=== PATIENT | female | born 1995 | race African-American/Black ===

== ENCOUNTER 2016-08-26 13:04 | Emergency (ER) | payer MEDICAID ==
[2016-08-26 13:11] VITALS: BP 125/73
--- NOTE | 2016-08-26 14:17 | ER Document Report ---
ED Medical Screen (RME) - General Chief Complaint: Vaginal Bleeding Stated Complaint: POSSIBLE VAGINAL BLEEDING Mode of Arrival: Ambulatory Information source: Patient Notes: Patient is complaining constant daily heavy vaginal bleeding since 07/29/16. She endorses pelvic pain and back pain that is intermittent, worse this morning. She is using approximately 3 tampons/pads per day. She has not seen her OBGYN because she is unable to get an appointment. Endorses nausea, lightheadedness but denies dizziness, fever, chills, vomiting, diarrhea or vaginal discharged. She has not tried any medication for this or any OTC pain medication. TRAVEL OUTSIDE OF THE [place] IN LAST 30 DAYS: No - Related Data Allergies/Adverse Reactions: diphenhydramine HCl [From [employer]] Adverse Reaction (Verified 05/22/15 03:20) Past Medical History - General Last Menstrual Period: july 29 - Social History Frequency of alcohol use: Social Drug Abuse: None Neurological Medical History: Reports: Hx Migraine Psychiatric Medical History: Reports: Hx Attention Deficit Hyperactivity Disorder - Immunizations Immunizations up to date: Yes Hx Diphtheria, Pertussis, Tetanus Vaccination: Yes Review of Systems - Review of Systems Constitutional: See HPI Gastrointestinal: See HPI Genitourinary: See HPI Female Genitourinary: See HPI Physical Exam - Vital signs Vitals: Temp Pulse Resp BP Pulse Ox 98.1 F 72 18 125/73 99 08/26/16 13:10 08/26/16 13:10 08/26/16 13:10 08/26/16 13:10 08/26/16 13:10 Interpretation: Normal - Notes Notes: General: well-appearing, comfortable, non-toxic. VSS. ENT: moist mucus membranes, no pallor. Course - Re-evaluation Re-evalutation: 08/26/16 14:16 Patient seen and examined. Ordered PO tylenol here, urinalysis, urine hcg and blood work. - Vital Signs Vital signs: Temp Pulse Resp BP Pulse Ox 98.1 F 72 18 125/73 99 08/26/16 13:10 08/26/16 13:10 08/26/16 13:10 08/26/16 13:10 08/26/16 13:10 08/26/16 14:17
[2016-08-26] MEDS ORDERED: ACETAMINOPHEN 325 MG TABLET PO ONE (14:18)
[2016-08-26 15:02] LABS: ABSOLUTE BASOPHILS # (AUTO) 0.1 10^3/uL (0.0-0.2); ABSOLUTE EOSINOPHILS # (AUTO) 0.4 10^3/uL (0.0-0.6); ABSOLUTE MONOCYTES (AUTO) 0.5 10^3/uL (0.1-1.4); ABSOLUTE NEUT (AUTO) 6.4 10^3/uL (1.7-8.2); BASOPHILS % (AUTO) 0.9 % (0-2); EOSINOPHILS % (AUTO) 3.8 % (0-6); HEMATOCRIT 33.9 % (36.0-47.0); HEMOGLOBIN 10.8 g/dL (12.0-15.5); HGB HCT DIFFERENCE -1.5; LYMPHOCYTES % (AUTO) 28.8 % (13-45); MEAN CORPUSCULAR HEMOGLOBIN 24.2 pg (27.0-33.4); MEAN CORPUSCULAR VOLUME 76 fl (80-97); MONOCYTES % (AUTO) 4.8 % (3-13); RED BLOOD COUNT 4.47 10^6/uL (3.72-5.28); RED CELL DISTRIBUTION WIDTH 15.6 % (11.5-14.0); SEGMENTED NEUTROPHILS % (AUTO) 61.7 % (42-78); WHITE BLOOD COUNT 10.4 10^3/uL (4.0-10.5)
[2016-08-26 15:13] LABS: PROTHROMBIN TIME 12.6 SEC (11.4-15.4)
[2016-08-26 15:18] LABS: APPEARANCE,URINE CLEAR; BILIRUBIN,URINE NEGATIVE (NEGATIVE); GLUCOSE, URINE NEGATIVE (NEGATIVE); KETONES,URINE NEGATIVE (NEGATIVE); LEUKOCYTE ESTERASE,URINE NEGATIVE (NEGATIVE); NITRITE,URINE NEGATIVE (NEGATIVE); PROTEIN,URINE NEGATIVE (NEGATIVE); URINE SPECIFIC GRAVITY 1.025; UROBILINOGEN,URINE NEGATIVE mg/dL (<2.0)
== END 2016-08-26 17:05 | disposition left against medical advice (07) ==
LOC: ER 13:04
DX: R10.2 Pelvic and perineal pain (principal); M54.9 Dorsalgia, unspecified; R11.0 Nausea; R42 Dizziness and giddiness
CPT/HCPCS: 99281; 36415; 85025; 85610; 81025; 81001; J3490

== ENCOUNTER 2017-01-22 13:47 | Emergency (ER) | payer MEDICAID | END 2017-01-22 15:58 | disposition left against medical advice (07) | LOC: ER 13:47 | DX: Z53.21 Procedure and treatment not carried out due to patient leaving prior to being seen by health care provider (principal) ==

== ENCOUNTER 2017-07-20 20:16 | Emergency (ER) | payer SELFPAY ==
[2017-07-20 20:34] VITALS: BP 129/73
[2017-07-20] MEDS ORDERED: LIDOCAINE 1% INJ-PF (10 MG/ML) 30 ML SDV INJ ONE (21:53)
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
[2017-07-20] MEDS ORDERED: ONDANSETRON 4 MG TAB.RAPDIS PO ONE (22:01)
[2017-07-20] MEDS ORDERED: ACETAMINOPHEN 325 MG TABLET PO ONE (22:01)
[2017-07-20 23:11] LABS: ABSOLUTE BASOPHILS # (AUTO) 0.1 10^3/uL (0.0-0.2); ABSOLUTE EOSINOPHILS # (AUTO) 0.2 10^3/uL (0.0-0.6); ABSOLUTE LYMPHOCYTES (AUTO) 2.9 10^3/uL (0.5-4.7); ABSOLUTE MONOCYTES (AUTO) 0.5 10^3/uL (0.1-1.4); BASOPHILS % (AUTO) 0.4 % (0-2); EOSINOPHILS % (AUTO) 1.2 % (0-6); HEMATOCRIT 36.2 % (36.0-47.0); HGB HCT DIFFERENCE -0.2; LYMPHOCYTES % (AUTO) 18.3 % (13-45); MEAN CORPUSCULAR HEMOGLOBIN 25.6 pg (27.0-33.4); MEAN CORPUSCULAR HGB CONC 33.1 g/dL (32.0-36.0); MEAN CORPUSCULAR VOLUME 77 fl (80-97); MONOCYTES % (AUTO) 3.4 % (3-13); RED BLOOD COUNT 4.68 10^6/uL (3.72-5.28); RED CELL DISTRIBUTION WIDTH 17.4 % (11.5-14.0); SEGMENTED NEUTROPHILS % (AUTO) 76.7 % (42-78); WHITE BLOOD COUNT 15.6 10^3/uL (4.0-10.5)
[2017-07-20 23:21] LABS: ALANINE AMINOTRANSFERASE 31 U/L (9-52); ALBUMIN 4.7 g/dL (3.5-5.0); ALKALINE PHOSPHATASE 100 U/L (38-126); ANION GAP 12 (5-19); ASPARTATE AMINO TRANSFERASE 16 U/L (14-36); BILIRUBIN,DIRECT 0.4 mg/dL (0.0-0.4); BILIRUBIN,TOTAL 0.8 mg/dL (0.2-1.3); BLOOD UREA NITROGEN 8 mg/dL (7-20); CARBON DIOXIDE 22 mmol/L (22-30); CHLORIDE 103 mmol/L (98-107); CREATININE RESULT 0.78 mg/dL (0.52-1.25); GLUCOSE 78 mg/dL (75-110); POTASSIUM 3.9 mmol/L (3.6-5.0); SODIUM 136.8 mmol/L (137-145); TOTAL PROTEIN 7.6 g/dL (6.3-8.2)
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
[2017-07-21 01:10] LABS: AMORPHOUS SEDIMENT,URINE 1+ /HPF; APPEARANCE,URINE TURBID; BILIRUBIN,URINE NEGATIVE (NEGATIVE); GLUCOSE, URINE NEGATIVE (NEGATIVE); KETONES,URINE 20 mg/dL (NEGATIVE); LEUKOCYTE ESTERASE,URINE NEGATIVE (NEGATIVE); NITRITE,URINE NEGATIVE (NEGATIVE); PROTEIN,URINE 100 mg/dL (NEGATIVE); URINE SPECIFIC GRAVITY 1.028; UROBILINOGEN,URINE NEGATIVE mg/dL (<2.0)
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
== END 2017-07-21 00:11 | disposition left against medical advice (07) ==
LOC: ER 20:16
DX: O9A.211 Injury, poisoning and certain other consequences of external causes complicating pregnancy, first trimester (principal); S61.301A Unspecified open wound of left index finger with damage to nail, initial encounter; S61.302A Unspecified open wound of right middle finger with damage to nail, initial encounter; Y04.0XXA Assault by unarmed brawl or fight, initial encounter; S39.91XA Unspecified injury of abdomen, initial encounter; Z3A.08 8 weeks gestation of pregnancy
CPT/HCPCS: 99281; 86900; 86901; 36415; 84702; 85025; 80053; 81001; 73130; 76817; 93976; L0120; S0119; J3490

== ENCOUNTER 2017-07-26 22:49 | Emergency (ER) | payer SELFPAY ==
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
[2017-07-27 01:39] LABS: APPEARANCE,URINE SLIGHTLY-CLOUDY; BILIRUBIN,URINE NEGATIVE (NEGATIVE); GLUCOSE, URINE NEGATIVE (NEGATIVE); KETONES,URINE NEGATIVE (NEGATIVE); LEUKOCYTE ESTERASE,URINE SMALL (NEGATIVE); NITRITE,URINE NEGATIVE (NEGATIVE); PROTEIN,URINE 100 mg/dL (NEGATIVE); URINE SPECIFIC GRAVITY 1.027
[2017-07-27 01:41] LABS: ABSOLUTE BASOPHILS # (AUTO) 0.1 10^3/uL (0.0-0.2); ABSOLUTE EOSINOPHILS # (AUTO) 0.5 10^3/uL (0.0-0.6); ABSOLUTE MONOCYTES (AUTO) 0.6 10^3/uL (0.1-1.4); ABSOLUTE NEUT (AUTO) 8.1 10^3/uL (1.7-8.2); BASOPHILS % (AUTO) 0.8 % (0-2); EOSINOPHILS % (AUTO) 3.5 % (0-6); HEMATOCRIT 36.4 % (36.0-47.0); HEMOGLOBIN 11.8 g/dL (12.0-15.5); MEAN CORPUSCULAR HEMOGLOBIN 25.5 pg (27.0-33.4); MEAN CORPUSCULAR HGB CONC 32.4 g/dL (32.0-36.0); MEAN CORPUSCULAR VOLUME 79 fl (80-97); MONOCYTES % (AUTO) 4.5 % (3-13); RED BLOOD COUNT 4.64 10^6/uL (3.72-5.28); RED CELL DISTRIBUTION WIDTH 17.4 % (11.5-14.0); SEGMENTED NEUTROPHILS % (AUTO) 61.2 % (42-78); WHITE BLOOD COUNT 13.3 10^3/uL (4.0-10.5)
[2017-07-27 01:42] LABS: BACTERIA,URINE 4+ /HPF; RBC,URINE 30-50 /HPF
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
== END 2017-07-27 03:44 | disposition home or self-care (01) ==
LOC: ER 22:49
DX: O20.9 Hemorrhage in early pregnancy, unspecified (principal); O26.891 Other specified pregnancy related conditions, first trimester; R10.2 Pelvic and perineal pain; O99.111 Other diseases of the blood and blood-forming organs and certain disorders involving the immune mechanism complicating pregnancy, first trimester; D72.829 Elevated white blood cell count, unspecified; Z3A.10 10 weeks gestation of pregnancy
CPT/HCPCS: 36415; 76817; 81001; 84702; 85025; 86900; 86901; 87086; 93976; 99284

== ENCOUNTER 2017-08-03 14:03 | Emergency (ER) | payer SELFPAY ==
--- NOTE | 2017-08-03 15:03 | ER Document Report ---
ED Medical Screen (RME) - General Chief Complaint: Vaginal Bleeding Stated Complaint: VAGINAL BLEEDING Time Seen by Provider: 08/03/17 14:55 Mode of Arrival: Ambulatory Information source: Patient TRAVEL OUTSIDE OF THE [place] IN LAST 30 DAYS: No - HPI Patient complains to provider of: vaginal bleeding Onset: Other - pt. seen here late last week for /vaginal bleeding -- was told she was miscarrying. Heavy vaginal bleeding has recurred. - Related Data Allergies/Adverse Reactions: diphenhydramine HCl [From Benadryl] Adverse Reaction (Verified 08/03/17 14:04) Past Medical History - General Last Menstrual Period: sept - Social History Frequency of alcohol use: Heavy Drug Abuse: None Neurological Medical History: Reports: Hx Migraine Renal/ Medical History: Denies: Hx Peritoneal Dialysis Psychiatric Medical History: Reports: Hx Attention Deficit Hyperactivity Disorder - Immunizations Immunizations up to date: Yes Hx Diphtheria, Pertussis, Tetanus Vaccination: Yes Physical Exam - Vital signs Vitals: Pulse Resp BP Pulse Ox 86 19 138/74 H 100 08/03/17 14:14 08/03/17 14:14 08/03/17 14:14 08/03/17 14:14 Course - Vital Signs Vital signs: Temp Pulse Resp BP Pulse Ox 86 19 138/74 H 100 08/03/17 14:14 08/03/17 14:14 08/03/17 14:14 08/03/17 14:14
[2017-08-03 15:44] LABS: ABSOLUTE BASOPHILS # (AUTO) 0.1 10^3/uL (0.0-0.2); ABSOLUTE EOSINOPHILS # (AUTO) 0.4 10^3/uL (0.0-0.6); ABSOLUTE LYMPHOCYTES (AUTO) 2.4 10^3/uL (0.5-4.7); ABSOLUTE MONOCYTES (AUTO) 0.8 10^3/uL (0.1-1.4); ABSOLUTE NEUT (AUTO) 11.5 10^3/uL (1.7-8.2); BASOPHILS % (AUTO) 0.7 % (0-2); EOSINOPHILS % (AUTO) 2.7 % (0-6); HEMATOCRIT 33.8 % (36.0-47.0); HEMOGLOBIN 11.1 g/dL (12.0-15.5); HGB HCT DIFFERENCE -0.5; LYMPHOCYTES % (AUTO) 15.6 % (13-45); MEAN CORPUSCULAR HEMOGLOBIN 25.6 pg (27.0-33.4); MEAN CORPUSCULAR HGB CONC 32.7 g/dL (32.0-36.0); MEAN CORPUSCULAR VOLUME 78 fl (80-97); MONOCYTES % (AUTO) 5.1 % (3-13); RED BLOOD COUNT 4.32 10^6/uL (3.72-5.28); RED CELL DISTRIBUTION WIDTH 17.5 % (11.5-14.0); SEGMENTED NEUTROPHILS % (AUTO) 75.9 % (42-78); WHITE BLOOD COUNT 15.2 10^3/uL (4.0-10.5)
[2017-08-03 16:04] LABS: ALANINE AMINOTRANSFERASE 29 U/L (9-52); ALBUMIN 4.1 g/dL (3.5-5.0); ALKALINE PHOSPHATASE 91 U/L (38-126); ANION GAP 16 (5-19); APPEARANCE,URINE CLEAR; ASPARTATE AMINO TRANSFERASE 15 U/L (14-36); BILIRUBIN,DIRECT 0.4 mg/dL (0.0-0.4); BILIRUBIN,TOTAL 0.6 mg/dL (0.2-1.3); BILIRUBIN,URINE NEGATIVE (NEGATIVE); BLOOD UREA NITROGEN 8 mg/dL (7-20); CALCIUM 9.6 mg/dL (8.4-10.2); CARBON DIOXIDE 21 mmol/L (22-30); CHLORIDE 106 mmol/L (98-107); CREATININE RESULT 0.78 mg/dL (0.52-1.25); GLUCOSE 83 mg/dL (75-110); GLUCOSE, URINE NEGATIVE (NEGATIVE); KETONES,URINE TRACE mg/dL (NEGATIVE); LEUKOCYTE ESTERASE,URINE NEGATIVE (NEGATIVE); NITRITE,URINE NEGATIVE (NEGATIVE); PROTEIN,URINE >=500 mg/dL (NEGATIVE); SODIUM 142.9 mmol/L (137-145); TOTAL PROTEIN 6.9 g/dL (6.3-8.2); URINE SPECIFIC GRAVITY 1.029; UROBILINOGEN,URINE NEGATIVE mg/dL (<2.0)
--- NOTE | 2017-08-03 16:22 | RADIOLOGY REPORT (SQ) ---
EXAM DESCRIPTION: U/S OB TRANSVAG W/DOPPLER COMPLETED DATE/TIME: 08/03/2017 4:02 pm REASON FOR STUDY: vaginal bleeding; ?miscarriage COMPARISON: 07/27/2017 TECHNIQUE: Transvaginal static and realtime grayscale images acquired of the pelvis. Additional héctor cted spectral and color Doppler images recorded. All images stored on PACs. bHCG: Pending. LIMITATIONS: None. FINDINGS: No intrauterine identified. UTERUS: No masses. No anomalies. CERVICAL LENGTH: 3.8 cm Closed. RIGHT ADNEXA: Normal ovary with normal vascular flow. No adnexal free fluid. No adnexal masses. LEFT ADNEXA: Normal ovary with normal vascular flow. No adnexal free fluid. No adnexal masses. FREE FLUID: None. OTHER: No other significant finding. IMPRESSION: No intrauterine identified. No adnexal masses. No free fluid. . TECHNICAL DOCUMENTATION: JOB ID: [id number] [employer]- All Rights Reserved
[2017-08-03] MEDS ORDERED: ACETAMINOPHEN 325 MG TABLET PO ONE (17:51)
--- NOTE | 2017-08-03 18:14 | ER Document Report ---
ED General - General Chief Complaint: Vaginal Bleeding Stated Complaint: VAGINAL BLEEDING Time Seen by Provider: 08/03/17 14:55 Mode of Arrival: Ambulatory TRAVEL OUTSIDE OF THE [place] IN LAST 30 DAYS: No - HPI Notes: 22-year-old female seen 1 week ago at what was felt to be approximately 10 weeks presents with persisting vaginal bleeding that has worsened. When she was seen a week ago she was told she was miscarrying. She has been spotting since but now is passed a large globular type mass has had some increased bleeding much worse than a menses. She came in a diaper and had fairly severely soaked a pad. She states it seems to have decreased somewhat but still is having lower abdominal cramping and burning in her back. No dizziness or near syncope. Quantitative hCG of 17,356 and hematocrit of 36. Blood type was O+. Ultrasound at that time showed a crown-rump measurement consistent with a fetus of 6 weeks 6 days but no cardiac activity was identified. There was abnormal cystic structure which was adjacent. She has not gotten follow-up at this point. Denies fever or other systemic symptoms. - Related Data Allergies/Adverse Reactions: diphenhydramine HCl [From Benadryl] Adverse Reaction (Verified 08/03/17 14:04) Past Medical History - General Information source: Patient Last Menstrual Period: apr - Social History Smoking Status: Current Every Day Smoker Frequency of alcohol use: Heavy Drug Abuse: None Family History: Reviewed & Not Pertinent, CVA, DM, Hypertension Patient has suicidal ideation: No Patient has homicidal ideation: No Neurological Medical History: Reports: Hx Migraine Renal/ Medical History: Denies: Hx Peritoneal Dialysis Psychiatric Medical History: Reports: Hx Attention Deficit Hyperactivity Disorder - Immunizations Immunizations up to date: Yes Hx Diphtheria, Pertussis, Tetanus Vaccination: Yes Review of Systems - Review of Systems -: Yes All other systems reviewed and negative Physical Exam - Vital signs Vitals: Pulse Resp BP Pulse Ox 86 19 138/74 H 100 08/03/17 14:14 08/03/17 14:14 08/03/17 14:14 08/03/17 14:14 - Genitourinary Notes: Normal external genitalia. No blood noted though patient apparently had wiped just recently. There is no pooling of blood and no active bright red bleeding noted. There is a clot at the cervix noted. Cervical office appears closed. Clot was removed and no bright red blood was noted. No obvious mass. No products are identified. Course - Re-evaluation Re-evalutation: 08/03/17 18:17 Patient continues to be symptomatic though now bleeding more heavy. Her hematocrit has only changed mildly. There is been a significant decrease in her quantitative hCG consistent with spontaneous . By description and with no products noted in the endometrial cavity, she appears to have passed the fetus. 08/03/17 19:01 08/03/17 18:55 Patient was observed in the emergency department. Bleeding has decreased significantly both by exam as well notably by her what she reports to me. We will treat her symptomatically at this point. I gave her instructions on pad counts and to return if she has 2 significantly bloody pads after 2 hours. She will return otherwise if she is symptomatic. She understands pelvic rest. She does have a OB doctor she will follow up with and recommended this within 24 hours. She understands warning signs as well to watch for. 08/03/17 18:57 - Vital Signs Vital signs: Temp Pulse Resp BP Pulse Ox 86 20 138/74 H 100 08/03/17 14:14 08/03/17 17:34 08/03/17 14:14 08/03/17 14:14 - Laboratory Result Diagrams: 08/03/17 15:15 08/03/17 15:15 Laboratory results interpreted by me: 08/03/17 08/03/17 08/03/17 15:15 15:15 15:15 WBC 15.2 H Hgb 11.1 L Hct 33.8 L MCV 78 L MCH 25.6 L RDW 17.5 H Absolute Neutrophils 11.5 H Carbon Dioxide 21 L Beta HCG, Quant 2794.00 H Urine Protein >=500 H Urine Ketones TRACE H Urine Blood LARGE H Discharge - Discharge Clinical Impression: Spontaneous Condition: Good Disposition: HOME, SELF-CARE Instructions: Miscarriage ([facility]) Additional Instructions: Pelvic rest, no intercourse or tampons until seen by INTERIOR DESIGN PROJECT MANAGER for follow-up. Contact your INTERIOR DESIGN PROJECT MANAGER tomorrow for recheck. Please let them know this was recommended by the emergency department. You may also contact Dr. Yap who is on-call for our INTERIOR DESIGN PROJECT MANAGER for a initial one-time evaluation after ER emergency department visit. Return if you are bleeding significantly such as soaking 2 pads in 2 hours or developed symptoms otherwise such as nearly passing out, significant dizziness, fever, return immediately to the emergency department. Start initially with ibuprofen or Aleve for discomfort. Prescriptions: Hydrocodone/Acetaminophen [[place] 5-325 mg Tablet] 1 tab PO Q4HP PRN #14 tablet PRN Reason: For Pain Ondansetron [Zofran Odt 4 mg Tablet] 1 - 2 tab PO Q4H PRN #15 tab.rapdis PRN Reason: For Nausea/Vomiting Forms: Smoking Cessation Education Referrals: MARIO YAP MD [ACTIVE STAFF] - Follow up as needed
[2017-08-03] MEDS ORDERED: ONDANSETRON 4 MG TAB.RAPDIS PO ONE (19:00)
[2017-08-03] MEDS ORDERED: HYDROCODONE/ACETAMINOPHEN 10-325 MG TABLET PO ONE (19:00)
[2017-08-03 19:21] VITALS: BP 118/60
== END 2017-08-03 19:21 | disposition home or self-care (01) ==
LOC: ER 14:03
DX: O03.9 Complete or unspecified spontaneous abortion without complication (principal); F17.200 Nicotine dependence, unspecified, uncomplicated
CPT/HCPCS: 99284; 36415; 84702; 85025; 80053; 81001; 76817; 93976; S0119

== ENCOUNTER 2019-02-04 10:46 | Emergency (ER) | payer SELFPAY ==
[2019-02-04] MEDS ORDERED: ONDANSETRON HCL INJ/PF 4 MG/2 ML SDV IV ONE (11:01)
[2019-02-04] MEDS ORDERED: NORMAL SALINE 1000 ML 1,000 ML IV ONE (11:01)
[2019-02-04 11:29] LABS: ABSOLUTE EOSINOPHILS # (AUTO) 0.5 10^3/uL (0.0-0.6); ABSOLUTE LYMPHOCYTES (AUTO) 2.3 10^3/uL (0.5-4.7); ABSOLUTE MONOCYTES (AUTO) 0.5 10^3/uL (0.1-1.4); ABSOLUTE NEUT (AUTO) 8.5 10^3/uL (1.7-8.2); BASOPHILS % (AUTO) 0.3 % (0-2); EOSINOPHILS % (AUTO) 3.9 % (0-6); HEMATOCRIT 35.1 % (36.0-47.0); HEMOGLOBIN 11.4 g/dL (12.0-15.5); LYMPHOCYTES % (AUTO) 19.4 % (13-45); MEAN CORPUSCULAR HEMOGLOBIN 24.9 pg (27.0-33.4); MEAN CORPUSCULAR HGB CONC 32.4 g/dL (32.0-36.0); MEAN CORPUSCULAR VOLUME 77 fl (80-97); MONOCYTES % (AUTO) 4.1 % (3-13); PLATELET COUNT 302 10^3/uL (150-450); RED BLOOD COUNT 4.57 10^6/uL (3.72-5.28); RED CELL DISTRIBUTION WIDTH 15.8 % (11.5-14.0); SEGMENTED NEUTROPHILS % (AUTO) 72.3 % (42-78); TOTAL CELLS COUNTED % (AUTO) 100 %; WHITE BLOOD COUNT 11.7 10^3/uL (4.0-10.5)
[2019-02-04 11:41] LABS: APPEARANCE,URINE CLOUDY; BILIRUBIN,URINE NEGATIVE (NEGATIVE); COLOR,URINE YELLOW; GLUCOSE, URINE NEGATIVE (NEGATIVE); KETONES,URINE NEGATIVE (NEGATIVE); LEUKOCYTE ESTERASE,URINE TRACE (NEGATIVE); NITRITE,URINE NEGATIVE (NEGATIVE); PROTEIN,URINE 30 mg/dL (NEGATIVE); URINE SPECIFIC GRAVITY 1.021; UROBILINOGEN,URINE NEGATIVE mg/dL (<2.0)
[2019-02-04 11:48] LABS: ALANINE AMINOTRANSFERASE 20 U/L (9-52); ALBUMIN 4.2 g/dL (3.5-5.0); ALKALINE PHOSPHATASE 94 U/L (38-126); ANION GAP 10 (5-19); ASPARTATE AMINO TRANSFERASE 14 U/L (14-36); BILIRUBIN,DIRECT 0.2 mg/dL (0.0-0.4); BILIRUBIN,TOTAL 0.4 mg/dL (0.2-1.3); BLOOD UREA NITROGEN 12 mg/dL (7-20); CALCIUM 9.1 mg/dL (8.4-10.2); CARBON DIOXIDE 28 mmol/L (22-30); CHLORIDE 105 mmol/L (98-107); GLUCOSE 99 mg/dL (75-110); LIPASE 163.9 U/L (23-300)
--- NOTE | 2019-02-04 12:42 | ER Document Report ---
ED General - General Chief Complaint: Abdominal Pain Stated Complaint: ABDOMINAL PAIN Time Seen by Provider: 02/04/19 11:00 Notes: 24-year-old female with no past medical history presents to the emergency department with chief complaint of back pain, stomach pain, vomiting for 2 months. She said she just got sick of dealing with it so she wanted to come in to seek treatment. She states that the pain is worse in the morning and is not associated with eating. She denies any fevers or chills, shortness of breath or chest pain, says the pain is in the right lower quadrant, denies any bloody vomitus or bloody diarrhea or stool. TRAVEL OUTSIDE OF THE [place] IN LAST 30 DAYS: No - Related Data Allergies/Adverse Reactions: diphenhydramine HCl [From Benadryl] Adverse Reaction (Verified 08/03/17 14:04) Past Medical History - Social History Smoking Status: Current Every Day Smoker Frequency of alcohol use: Social Drug Abuse: None Family History: Reviewed & Not Pertinent, CVA, DM, Hypertension Patient has suicidal ideation: No Patient has homicidal ideation: No Neurological Medical History: Reports: Hx Migraine Renal/ Medical History: Denies: Hx Peritoneal Dialysis Psychiatric Medical History: Reports: Hx Attention Deficit Hyperactivity Disorder - Immunizations Immunizations up to date: Yes Hx Diphtheria, Pertussis, Tetanus Vaccination: Yes Review of Systems - Review of Systems Constitutional: See HPI EENT: No symptoms reported Cardiovascular: See HPI Respiratory: See HPI Gastrointestinal: See HPI Genitourinary: See HPI Female Genitourinary: No symptoms reported Musculoskeletal: No symptoms reported Skin: No symptoms reported Hematologic/Lymphatic: No symptoms reported Neurological/Psychological: No symptoms reported Physical Exam - Vital signs Vitals: Temp Pulse Resp BP Pulse Ox 98.4 F 58 L 16 126/84 H 100 02/04/19 10:58 02/04/19 10:58 02/04/19 10:58 02/04/19 10:58 02/04/19 10:58 - Notes Notes: PHYSICAL EXAMINATION: Reviewed vital signs and charting by RN GENERAL: Alert, interacts well. No acute distress. HEAD: Normocephalic, atraumatic. EYES: Pupils equal and round. Extraocular movements intact. ENT: Oral mucosa moist, tongue midline. NECK: Full range of motion. Trachea midline. LUNGS: Clear to auscultation bilaterally, no wheezes, rales, or rhonchi. No resp iratory distress. HEART: Regular rate and rhythm. No murmur ABDOMEN: soft, right lower quadrant tenderness to deep palpation. No distention. Bowel sounds present EXTREMITIES: Moves all 4 extremities spontaneously. No edema, No cyanosis. PSYCH: Normal affect, normal mood. SKIN: Warm, dry, normal turgor. No rashes or lesions noted. Course - Re-evaluation Re-evalutation: 02/04/19 12:50 Well-appearing. No peritoneal signs, patient does have right lower quadrant pain but denies any pelvic pain or urinary symptoms. I have a very low suspicion for appendicitis at this time as patient does not have a leukocytosis or fever. Also, I have very low concern for any gynecological problem at this time as this is been a chronic problem that is subacute in nature. All vital signs have been within normal limits and lab work is all within normal limits. Urinalysis unremarkable for a urinary tract infection but I will send for cul najma. She is stable for discharge. - Vital Signs Vital signs: Temp Pulse Resp BP Pulse Ox 98.4 F 58 L 16 126/84 H 100 02/04/19 10:58 02/04/19 10:58 02/04/19 10:58 02/04/19 10:58 02/04/19 10:58 - Laboratory Result Diagrams: 02/04/19 11:10 02/04/19 11:10 Laboratory results interpreted by me: 02/04/19 02/04/19 11:10 11:10 WBC 11.7 H Hgb 11.4 L Hct 35.1 L MCV 77 L MCH 24.9 L RDW 15.8 H Absolute Neutrophils 8.5 H Urine Protein 30 H Urine Blood LARGE H Ur Leukocyte Esterase TRACE H Discharge - Discharge Clinical Impression: Abdominal pain Qualifiers: Abdominal location: right lower quadrant Qualified Code(s): R10.31 - Right lower quadrant pain Vomiting Qualifiers: Vomiting type: unspecified Vomiting Intractability: non-intractable Nausea presence: with nausea Qualified Code(s): R11.2 - Nausea with vomiting, unspecified Condition: Good Disposition: HOME, SELF-CARE Instructions: Abdominal Pain ([facility]) Additional Instructions: You have been seen in the Emergency Department (ED) today for nausea and vomiting. Your work up today has not shown a clear cause for your symptoms. You have been prescribed Zofran; please use as prescribed as needed for your nausea. Follow up with your doctor as soon as possible regarding today's emergent visit and your symptoms of nausea. Return to the Emergency Department (ED) if you develop abdominal pain, bloody vomiting, bloody diarrhea, if you are unable to tolerate fluids due to vomiting, or if you develop other symptoms that concern you.
--- NOTE | 2019-02-04 13:07 | RADIOLOGY REPORT (SQ) ---
EXAM DESCRIPTION: U/S ABDOMEN LIMITED W/O DOP COMPLETED DATE/TIME: 02/04/2019 12:55 pm REASON FOR STUDY: ruq abdominal pain through to back COMPARISON: None. TECHNIQUE: Dynamic and static grayscale images acquired of the abdomen and recorded on PACS. Additio nal selected color Doppler and spectral images recorded. LIMITATIONS: None. FINDINGS: PANCREAS: No masses. Visualized pancreatic duct normal caliber. LIVER: No masses. Echotexture normal. LIVER VASCULATURE: Normal directional flow of the main portal vein and hepatic veins. GALLBLADDER: Gallstones and gall sludge. There appears to be a gallstone in the gallbladder neck. N ormal wall thickness. No pericholecystic fluid. ULTRASOUND-DETECTED MILLER'S SIGN: Negative. INTRAHEPATIC DUCTS AND COMMON DUCT: CBD and intrahepatic ducts normal caliber. No filling defects. INFERIOR VENA CAVA: Normal flow. AORTA: No aneurysm. RIGHT KIDNEY: Normal size. Normal echogenicity. No solid or suspicious masses. No hydronephrosis. No calcifications. PERITONEAL AND RIGHT PLEURAL SPACE: No ascites or effusions. OTHER: No other significant findings. IMPRESSION: Multiple gallstones and gall sludge in the gallbladder. There appears to be a gallstone in the gallbladder neck. There is no gallbladder wall thickening or pericholecystic fluid. No bili branden ductal dilation. Negative sonographic Miller's sign. Findings are indeterminate for acute tess cystitis in the setting of acute abdominal pain. HIDA and/or MRCP may be used to further evaluate if desired. TECHNICAL DOCUMENTATION: JOB ID: [id number] [employer]- All Rights Reserved Reading location - IP/workstation name: [email or web address]
[2019-02-04 13:16] VITALS: BP 121/70
== END 2019-02-04 13:23 | disposition home or self-care (01) ==
LOC: ER 10:46
DX: R10.31 Right lower quadrant pain (principal); R11.2 Nausea with vomiting, unspecified; M54.9 Dorsalgia, unspecified; F17.200 Nicotine dependence, unspecified, uncomplicated
CPT/HCPCS: 99284; 96361; 96374; 36415; 87086; 83690; 84703; 85025; 80053; 81001; 76705; J2405; J7030

== ENCOUNTER 2019-05-04 13:18 | Emergency (ER) | payer SELFPAY ==
[2019-05-04 13:26] VITALS: BP 131/83
[2019-05-04] MEDS ORDERED: IPRATROPIUM/ALBUTEROL 0.5-2.5 MG/3 ML AMPUL NEB ONE (13:59)
[2019-05-04] MEDS ORDERED: PREDNISONE 20 MG TABLET PO ONE (13:59)
--- NOTE | 2019-05-04 14:01 | ER Document Report ---
ED Medical Screen (RME) - General Chief Complaint: Breathing Difficulty Stated Complaint: DIFFICULTY BREATHING, COUGH Time Seen by Provider: 05/04/19 13:55 Mode of Arrival: Ambulatory Information source: Patient Notes: Patient is a 24-year-old female presents emergency department with chief complaint of facial pain, fever, cough and all of her body aches. Patient denies any recent sick contacts. She denies any nausea, vomiting or diarrhea. Exam: Expiratory wheezes noted bilaterally. Bronchospasm with deep breath. I have greeted and performed a rapid initial assessment of this patient. A comprehensive ED assessment and evaluation of the patient, analysis of test results and completion of the medical decision making process will be conducted by additional ED providers. I have specifically instructed the patient or family members with the patient to immediately return to any nursing staff should anything change in the patient's condition or with their chief complaint. This medical record was dictated with voice recognizing software. There may be grammatical, syntax errors that are unintended. TRAVEL OUTSIDE OF THE [place] IN LAST 30 DAYS: No - Related Data Allergies/Adverse Reactions: diphenhydramine HCl [From Benadryl] Adverse Reaction (Verified 05/04/19 13:19) Past Medical History Neurological Medical History: Reports: Hx Migraine Renal/ Medical History: Denies: Hx Peritoneal Dialysis Psychiatric Medical History: Reports: Hx Attention Deficit Hyperactivity Disorder - Immunizations Immunizations up to date: Yes Hx Diphtheria, Pertussis, Tetanus Vaccination: Yes Physical Exam - Vital signs Vitals: Temp Pulse Resp BP Pulse Ox 98.3 F 91 18 131/83 H 96 05/04/19 13:24 05/04/19 13:24 05/04/19 13:24 05/04/19 13:24 05/04/19 13:24 Course - Vital Signs Vital signs: Temp Pulse Resp BP Pulse Ox 98.3 F 91 18 131/83 H 96 05/04/19 13:24 05/04/19 13:24 05/04/19 13:24 05/04/19 13:24 05/04/19 13:24
--- NOTE | 2019-05-04 14:46 | RADIOLOGY REPORT (SQ) ---
EXAM DESCRIPTION: CHEST 2 VIEWS COMPLETED DATE/TIME: 05/04/2019 2:39 pm REASON FOR STUDY: cough, fever COMPARISON: 07/29/2016 EXAM PARAMETERS: NUMBER OF VIEWS: two views TECHNIQUE: Digital Frontal and Lateral radiographic views of the chest acquired. RADIATION DOSE: NA LIMITATIONS: none FINDINGS: LUNGS AND PLEURA: No opacities, masses or pneumothorax. No pleural effusion. MEDIASTINUM AND HILAR STRUCTURES: No masses or contour abnormalities. HEART AND VASCULAR STRUCTURES: Heart normal size. No evidence for failure. BONES: No acute findings. HARDWARE: None in the chest. OTHER: No other significant finding. IMPRESSION: NO ACUTE RADIOGRAPHIC FINDING IN THE CHEST. TECHNICAL DOCUMENTATION: JOB ID: [id number] [employer]- All Rights Reserved Reading location - IP/workstation name: [email or web address]
== END 2019-05-04 16:00 | disposition left against medical advice (07) ==
LOC: ER 13:18
DX: R51 Headache (principal); R50.9 Fever, unspecified; R05 Cough; R06.2 Wheezing; J98.01 Acute bronchospasm
CPT/HCPCS: 94640; 99281; 71046; J7512; J7620

== ENCOUNTER 2020-02-12 15:28 | Emergency (ER) | payer MEDICAID ==
[2020-02-12] MEDS ORDERED: FAMOTIDINE 20 MG TABLET PO ONE (16:03)
[2020-02-12] MEDS ORDERED: METHYLPREDNISOLONE INJ 125 MG/2 ML SDV IM ONE (16:03)
--- NOTE | 2020-02-12 16:11 | ER Document Report ---
HPI - HPI Time Seen by Provider: 02/12/20 16:00 Pain Level: 0 Context: Patient is a 25-year-old female who presents to the emergency department with a chief complaint of allergic reaction. Patient reports prior to arrival she had been standing outside of her car for about 2 hours after head broke down. She states that she was very thirsty and began to drink pineapple soda. Patient reports afterwards she began to feel like her lips and tongue were swelling. She reports that she also had a burning sensation to her mouth and in her nose. Patient reports she has an adverse reaction to Benadryl so she took to Shelley. Patient reports since then her symptoms have completely resolved and improved. Patient denies history of allergic reaction or anaphylaxis. - REPRODUCTIVE Reproductive: DENIES: : Past Medical History - General Information source: Patient - Social History Smoking Status: Unknown if Ever Smoked Lives with: Family Family History: Reviewed & Not Pertinent, CVA, DM, Hypertension - Past Medical History Cardiac Medical History: Reports: None Pulmonary Medical History: Reports: None EENT Medical History: Reports: None Neurological Medical History: Reports: Hx Migraine Endocrine Medical History: Reports: None Renal/ Medical History: Reports: None. Denies: Hx Peritoneal Dialysis Malignancy Medical History: Reports: None GI Medical History: Reports: None Musculoskeletal Medical History: Reports None Skin Medical History: Reports None Psychiatric Medical History: Reports: Hx Attention Deficit Hyperactivity Disorder Traumatic Medical History: Reports: None Infectious Medical History: Reports: None Surgical Hx: Negative - Immunizations Immunizations up to date: Yes Hx Diphtheria, Pertussis, Tetanus Vaccination: Yes Vertical Provider Document - CONSTITUTIONAL Agree With Documented VS: Yes Exam Limitations: No Limitations General Appearance: No Apparent Distress Notes: GENERAL: Well-appearing, well-nourished and in no acute distress. HEAD: Atraumatic, normocephalic. EYES: Pupils equal round and reactive to light, extraocular movements intact, sclera anicteric, conjunctiva are normal. ENT: TMs normal, nares patent, oropharynx clear without exudates. Moist mucous membranes. NECK: Normal range of motion, supple without lymphadenopathy or JVD. LUNGS: Breath sounds clear to auscultation bilaterally and equal. No wheezes rales or rhonchi. HEART: Regular rate and rhythm without murmurs, rubs or gallops. ABDOMEN: Soft, nontender, normoactive bowel sounds. No guarding, no rebound. No masses appreciated. BACK: No cervical, thoracic, lumbar midline tenderness. No saddle anesthesia, normal distal neurovascular exam. GENITOURINARY: Deferred. EXTREMITIES: Normal range of motion, no pitting or edema. No clubbing or cyanosis. NEUROLOGICAL: Cranial nerves II through XII grossly intact. Normal speech, normal gait. PSYCH: Normal mood, normal affect. SKIN: Warm, Dry, normal turgor, no rashes or lesions noted. - INFECTION CONTROL TRAVEL OUTSIDE OF THE [place] IN LAST 30 DAYS: No Course - Re-evaluation Re-evalutation: 02/12/20 16:10 Patient in triage and in no acute distress. No signs of angioedema. Patient speech is clear and appropriate. Patient able to swallow secretions without difficulty. Physical examination was reassuring. Will give the patient IM Solu-Medrol as well as Pepcid. Patient cannot have Benadryl as she reports this does cause a rash. Patient did take an antihistamine, Shelley x2 prior to arrival. We will continue to monitor. 02/12/20 17:19 Patient has been resting comfortably in the emergency department no acute d istress. Will discharge home with an EpiPen. Did encourage the patient to also take an antihistamine over the next week, she can take Shelley or Zyrtec. Patient also take Pepcid 20 mg daily. - Vital Signs Vital signs: Temp Pulse Resp BP Pulse Ox 98.3 F 93 16 135/80 H 98 02/12/20 15:35 02/12/20 15:35 02/12/20 15:35 02/12/20 15:35 02/12/20 15:35 Discharge - Discharge Clinical Impression: Allergic reaction Qualifiers: Encounter type: initial encounter Qualified Code(s): T78.40XA - Allergy, unspecified, initial encounter Condition: Stable Disposition: HOME, SELF-CARE Additional Instructions: ACUTE ALLERGIC REACTION: Your symptoms are due to an allergic reaction. Allergy can cause hives, swelling of the hands, feet, and face, hoarseness, and difficulty swallowing or breathing. It may be due to exposure to medication, animal dander, foods, infection, or insect bites. Medication is a common cause, even when prior use of this same medication caused no problems. Acute treatment may include adrenalin and antihistamines. Usually, the specific allergic agent can't be identified unless repeated episodes occur. Home treatment includes the following: (1) Stop any suspicious medications. This will be discussed with you. (2) Oral antihistamines for the next four to five days. Example, diphenhydramine (Benadryl) every four hours. (3) You may also use cimetidine (Tagamet), ranitidine (Zantac), or famotidine (Pepcid) every four hours if diphenhydramine is not controlling itching and hives. (4) Avoid aspirin until the hives completely disappear. (5) Avoid hot baths or showers until the hives are completely gone. Call the doctor if faintness, difficulty swallowing, tightness in the chest, or wheezing occurs. STEROID MEDICATION INJECTION: You have been given an injection of medicine of the cortisone/steroid class. This medication is used to control inflammation or allergy. It is often continued as a pill for a short period of time, until the acute process subsides. There are usually no side effects from short-term use of cortisone-like medications. Some persons feel an increased sense of well-being and are not sleepy at bedtime. Long-term use of cortisone medications is best avoided, unless required for a severe condition. If your condition does not remit, or relapses after the course of corticosteroid medication, you should consult your physician. ACID-SUPPRESSING MEDICATION: You have a prescription for medicine which reduces the stomach's secretion of acid. Examples include Zantac, Tagament, and Pepcid. These drugs are often used to allow healing of ulcers or esophagitis. They may be needed to prevent recurrence of ulcers in some patients, or to prevent damage from acid reflux in the esophagus. Take all medication as prescribed, even after the pain is gone. Regular antacids may be added as needed if you have symptoms while taking this medicine. These medications sometimes are prescribed for allergic reactions because they have anti-histaminic effects and relieve the rash and itching of the reaction. There are usually no side effects from this medication. But, in rare cases and particularly in the elderly, serious problems can occur. Contact your doctor if there is fever, rash, hallucinations, confusion, or unusual bruising. Contact your doctor at once if you develop lightheadedness, black or bloody stool, or bloody vomitus. ANTIHISTAMINES: An antihistamine has been given and/or prescribed to control your symptoms. Antihistamines are used for many reasons, including itching, watering eyes, runny nose, allergic swelling, hives, and insect stings. Antihistamines may cause drowsiness, especially with the first dose. Do not operate machinery or drive while under the effects of the medication. Other common side effects include dry mouth and eyes. In older persons, antihist amines can occasionally cause urinary retention, constipation, and trouble focusing the eyes. Do not combine the medication with alcohol, or with any other medication without talking to your doctor. FOLLOW-UP CARE: If you have been referred to a physician for follow-up care, call the physicians office for an appointment as you were instructed or within the next two days. If you experience worsening or a significant change in your symptoms, notify the physician immediately or return to the Emergency Department at any time for re-evaluation. Prescriptions: Prednisone [Deltasone 20 mg Tablet] 40 mg PO DAILY 5 Days #10 tablet Epinephrine [Epipen] 0.3 mg IJ ONCE PRN #1 auto.injct PRN Reason: Famotidine [Pepcid 20 mg Tablet] 20 mg PO DAILY #14 tablet Forms: Return to Work
[2020-02-12 17:28] VITALS: BP 135/83
== END 2020-02-12 17:25 | disposition home or self-care (01) ==
LOC: ER 15:28
DX: T78.40XA Allergy, unspecified, initial encounter (principal); X58.XXXA Exposure to other specified factors, initial encounter
CPT/HCPCS: 99283; 96372; J3490; J2930

== ENCOUNTER 2020-07-12 13:49 | Emergency (ER) | payer MEDICAID ==
[2020-07-12 14:03] VITALS: BP 141/83
[2020-07-12] MEDS ORDERED: OXYCODONE-ACETAMINOPHEN 5-325 MG TABLET PO ONE (15:03)
[2020-07-12] MEDS ORDERED: CIPROFLOXACIN HCL/DEXAMETH OTIC DROP 7.5 ML AS ONE (15:03)
--- NOTE | 2020-07-12 15:04 | ER Document Report ---
HPI - HPI Time Seen by Provider: 07/12/20 14:44 Pain Level: 5 Notes: Otherwise healthy 25-year-old female presenting to the emergency department with complaints of left upper dental pain and left ear pain. She reports symptoms ongoing for the last 2 days. She denies any fever or chills. - ROS Systems Reviewed and Negative: Yes All other systems reviewed and negative - CONSTITUTIONAL Constitutional: DENIES: Fever - EENT EENT: REPORTS: Ear Pain - left x 2 day Notes: left upper dental pain - REPRODUCTIVE LMP: 07/01/20 Reproductive: DENIES: : Past Medical History - Social History Smoking Status: Current Every Day Smoker Chew tobacco use (# tins/day): No Frequency of alcohol use: Social Drug Abuse: None Family History: Reviewed & Not Pertinent, CVA, DM, Hypertension Neurological Medical History: Reports: Hx Migraine Renal/ Medical History: Denies: Hx Peritoneal Dialysis Psychiatric Medical History: Reports: Hx Attention Deficit Hyperactivity Disorder - Immunizations Immunizations up to date: Yes Hx Diphtheria, Pertussis, Tetanus Vaccination: Yes Vertical Provider Document - CONSTITUTIONAL Notes: PHYSICAL EXAMINATION: GENERAL: Well-appearing, well-nourished and in no acute distress. HEAD: Atraumatic, normocephalic. EYES: Pupils equal round extraocular movements intact, conjunctiva are normal. ENT: Nares patent, erythema surrounding left upper gum, no vel abscess, no trismus. NECK: Normal range of motion LUNGS: No respiratory distress Musculoskeletal: Normal range of motion NEUROLOGICAL: Normal speech, normal gait. PSYCH: Normal mood, normal affect. SKIN: Warm, Dry, normal turgor, no rashes or lesions noted. Left TM unremarkable. - INFECTION CONTROL TRAVEL OUTSIDE OF THE [place] IN LAST 30 DAYS: No Course - Re-evaluation Re-evalutation: Patient will be started on Ciprodex for otitis externa. She will also be started on amoxicillin for possible dental infection. ED return precautions discussed, patient verbalized understanding and agreement. - Vital Signs Vital signs: Temp Pulse Resp BP Pulse Ox 98.4 F 60 20 141/83 H 98 07/12/20 14:02 07/12/20 14:02 07/12/20 14:02 07/12/20 14:02 07/12/20 14:02 Discharge - Discharge Clinical Impression: Mouth pain Otitis externa Qualifiers: Otitis externa type: unspecified type Chronicity: acute Laterality: left Qualified Code(s): H60.502 - Unspecified acute noninfective otitis externa, left ear Condition: Stable Disposition: HOME, SELF-CARE Additional Instructions: Please take medications as prescribed. Apply 4 drops of the Ciprodex eardrops to the affected ear twice daily for the next 7 to 10 days. Tylenol or ibuprofen for any pain. Return if any new or worsening symptoms. Prescriptions: Amoxicillin 1 tab PO TID #30 tab Forms: Return to Work
== END 2020-07-12 15:20 | disposition home or self-care (01) ==
LOC: ER 13:49
DX: H60.502 Unspecified acute noninfective otitis externa, left ear (principal); K13.79 Other lesions of oral mucosa; H92.02 Otalgia, left ear; F17.200 Nicotine dependence, unspecified, uncomplicated
CPT/HCPCS: 99283; J3490